=== PATIENT | female | born 1975 | race Caucasian/White ===

== ENCOUNTER 2018-12-31 18:47 | Emergency (ER) | payer OTHER ==
[~2018-12-31] VITALS: Ht 167.6 cm; Wt 78.9 kg
--- NOTE | 2018-12-31 19:01 | ED.ADGEN ---
Past History Past Medical History: Bronchitis Adult General Chief Complaint Chief Complaint ".. I ve been sick since .. cough, fever like feeling, weak.., achy.. just not right.. but today in much worse... seemed like I could not catch my breath.. 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 Patient is exposed to multiple children in daycare that are frequently ill with upper respiratory infection. No recent travel. No history immunosuppression. Patient normally follows with . Patient reports symptoms are worse today. Review of Systems Review of Systems Constitutional: History of fever or chills [] Eyes: Denies change in visual acuity, redness, or eye pain [] HENT: History of nasal congestion and sore throat [] Respiratory: History of cough and wheezing Cardiovascular: No additional information not addressed in HPI [] GI: Denies abdominal pain, nausea, vomiting, bloody stools or diarrhea [] : Denies dysuria or hematuria [] Musculoskeletal: Denies back pain or joint pain [] Integument: Denies rash or skin lesions [] Neurologic: Denies headache, focal weakness or sensory changes [] Endocrine: Denies polyuria or polydipsia [] All other systems were reviewed and found to be within normal limits, except as documented in this note. Family History Family History Noncontributory Current Medications Current Medications Current Medications Medications (Trade) Dose Ordered Sig/Elen Start Time Stop Time Status Last Admin Dose Admin Albuterol Sulfate (Ventolin Hfa Inhaler) 2 puff 1X ONCE 12/31/18 19:30 12/31/18 19:31 DC 12/31/18 19:30 2 PUFF Aspirin (Children'S Aspirin) 324 mg 1X ONCE 12/31/18 19:30 12/31/18 19:31 DC 12/31/18 19:30 324 MG Lactated Ringer's 1,000 ml @ 1,000 mls/hr Q1H 12/31/18 19:03 12/31/18 20:02 DC 12/31/18 19:03 1,000 MLS/HR Prednisone (Prednisone) 50 mg 1X ONCE 12/31/18 19:30 12/31/18 19:31 DC 12/31/18 19:30 50 MG Allergies Allergies Allergies Coded Allergies Type Severity Reaction Last Updated Verified Penicillins Allergy Unknown 12/31/18 Yes Physical Exam Physical Exam Constitutional: Moderate acute distress, non-toxic appearance. [] HENT: Normocephalic, atraumatic, bilateral external ears normal, oropharynx moist, injected pharynx, no oral exudates, nose injected turbinates and clear rhinorrhea. Eyes: PERRLA, EOMI, conjunctiva normal, no discharge. [] Neck: Normal range of motion, no tenderness, supple, no stridor. [] Cardiovascular:Heart rate regular rhythm, no murmur [] Lungs & Thorax: Bilateral breath sounds equal apex with scattered wheezes. On Auscultation [] Abdomen: Bowel sounds normal, soft, no tenderness, no masses, no pulsatile masses. [] Skin: Warm, dry, no erythema, no rash. [] Back: No tenderness, no CVA tenderness. [] Extremities: No tenderness, no cyanosis, no clubbing, ROM intact, no edema. [] Neurologic: Alert and oriented X 3, normal motor function, normal sensory function, no focal deficits noted. [] Psychologic: Affect normal, judgement normal, mood normal. [] Current Patient Data Vital Signs Vital Signs Date Time Temp Pulse Resp B/P (MAP) Pulse Ox O2 Delivery O2 Flow Rate FiO2 12/31/18 21:22 76 18 143/65 (91) 98 Room Air 12/31/18 19:15 98.3 Lab Results Laboratory Tests Test 12/31/18 19:37 12/31/18 20:17 White Blood Count 11.9 x10^3/uL (4.0-11.0) H Red Blood Count 4.51 x10^6/uL (3.50-5.40) Hemoglobin 13.3 g/dL (12.0-15.5) Hematocrit 41.0 % (36.0-47.0) Mean Corpuscular Volume 91 fL (79-100) Mean Corpuscular Hemoglobin 30 pg (25-35) Mean Corpuscular Hemoglobin Concent 33 g/dL (31-37) Red Cell Distribution Width 13.9 % (11.5-14.5) Platelet Count 294 x10^3/uL (140-400) Neutrophils (%) (Auto) 58 % (31-73) Lymphocytes (%) (Auto) 29 % (24-48) Monocytes (%) (Auto) 9 % (0-9) Eosinophils (%) (Auto) 3 % (0-3) Basophils (%) (Auto) 1 % (0-3) Neutrophils # (Auto) 6.9 x10^3uL (1.8-7.7) Lymphocytes # (Auto) 3.5 x10^3/uL (1.0-4.8) Monocytes # (Auto) 1.1 x10^3/uL (0.0-1.1) Eosinophils # (Auto) 0.3 x10^3/uL (0.0-0.7) Basophils # (Auto) 0.1 x10^3/uL (0.0-0.2) Prothrombin Time 10.1 SEC (9.4-11.4) Prothrombin Time INR 1.0 (0.9-1.1) Activated Partial Thromboplast Time 26 SEC (23-33) D-Dimer (Anjali) 0.41 mg/L (0.00-0.50) Sodium Level 141 mmol/L (136-145) Potassium Level 3.7 mmol/L (3.5-5.1) Chloride Level 105 mmol/L (98-107) Carbon Dioxide Level 27 mmol/L (21-32) Anion Gap 9 (6-14) Blood Urea Nitrogen 9 mg/dL (7-20) Creatinine 0.7 mg/dL (0.6-1.0) Estimated GFR (Cockcroft-Gault) 91.3 Glucose Level 91 mg/dL (70-99) Calcium Level 8.4 mg/dL (8.5-10.1) L Magnesium Level 2.0 mg/dL (1.8-2.4) Total Bilirubin 0.1 mg/dL (0.2-1.0) L Direct Bilirubin 0.1 mg/dL (0.0-0.2) Aspartate Amino Transferase (AST) 19 U/L (15-37) Alanine Aminotransferase (ALT) 35 U/L (14-59) Alkaline Phosphatase 99 U/L (46-116) Creatine Kinase 96 U/L (26-192) Troponin I Quantitative < 0.017 ng/mL (0-0.055) PW-Qpu-B-Type Natriuretic Peptide 40 pg/mL (0-124) Total Protein 7.7 g/dL (6.4-8.2) Albumin 3.6 g/dL (3.4-5.0) Lipase 82 U/L (73-393) Influenza Type A (Rapid) Negative (NEGATIVE) Influenza Type B (Rapid) Negative (NEGATIVE) Group A Streptococcus Rapid Negative (NEGATIVE) Urine Collection Type Unknown Urine Color Straw Urine Clarity Clear Urine pH 7.0 Urine Specific [place] 1.010 Urine Protein Neg (NEG-TRACE) Urine Glucose (UA) Neg mg/dL (NEG) Urine Ketones (Stick) Neg mg/dL (NEG) Urine Blood Small (NEG) Urine Nitrite Neg (NEG) Urine Bilirubin Neg (NEG) Urine Urobilinogen Dipstick 0.2 mg/dL (0.2 mg/dL) Urine Leukocyte Esterase Neg (NEG) Urine RBC Rare /HPF (0-2) Urine WBC Occ /HPF (0-4) Urine Squamous Epithelial Cells Occ /LPF Urine Bacteria 0 /HPF (0-FEW) Urine Opiates Screen Neg (NEG) Urine Methadone Screen Neg (NEG) Urine Barbiturates Neg (NEG) Urine Phencyclidine Screen Neg (NEG) Urine Amphetamine/Methamphetamine Neg (NEG) Urine Benzodiazepines Screen Neg (NEG) Urine Cocaine Screen Neg (NEG) Urine Cannabinoids Screen Neg (NEG) Urine Ethyl Alcohol Neg (NEG) EKG EKG My interpretation EKG shows a sinus rhythm at 70 bpm. No findings acute STEMI of contralateral changes.[] Radiology/Procedures Radiology/Procedures [ IMAGING REPORT Signed PATIENT: ALEXANDRIA WALL ACCOUNT: [id number] : 1975 LOCATION: ER AGE: 43 SEX: F EXAM STATUS: REG ER ORD. PHYSICIAN: OZZIE ROTH MD REASON: cp PROCEDURE: CHEST PA & LATERAL Chest, PA and Lateral: Technique: PA and lateral views of the chest were obtained. History: Chest pain. Comparison: None. Findings: The heart and pulmonary vasculature appear within normal limits. The lungs are clear. The pleural margins are clear. Impression: No acute chest process is seen. Electronically signed by: Radames Jimenez MD (12/31/2018 7:51 PM) [facility] DICTATED AND SIGNED BY: RADAMES JIMENEZ MD DATE: 12/31/181950 CC: TERESA JACOB DO; OZZIE ROTH MD ~ ][place] [address] IMAGING REPORT Signed PATIENT: ALEXANDRIA WALL ACCOUNT: [id number] : 1975 LOCATION: ER AGE: 43 SEX: F EXAM STATUS: REG ER ORD. PHYSICIAN: OZZIE ROTH MD REASON: cp PROCEDURE: CHEST PA & LATERAL Chest, PA and Lateral: Technique: PA and lateral views of the chest were obtained. History: Chest pain. Comparison: None. Findings: The heart and pulmonary vasculature appear within normal limits. The lungs are clear. The pleural margins are clear. Impression: No acute chest process is seen. Electronically signed by: Radames Jimenez MD (12/31/2018 7:51 PM) [facility] DICTATED AND SIGNED BY: RADAMES JIMENEZ MD DATE: 12/31/181950 CC: TERESA JACOB DO; OZZIE ROTH MD ~ Course & Med Decision Making Course & Med Decision Making Pertinent Labs and Imaging studies reviewed. (See chart for details) Awaiting coags. 2100- problems with lab runs. Patient to push fluids get adequate rest. Take Tylenol and ibuprofen for discomfort. Take prednisone 50 mg a day. Use MDI 2 puffs 4 times a day. Follow- up primary care. Return of any concerns. [] Final Impression Final Impression 1. Viral Syndrome 2. Bronchitis 3. Mild leukocytosis 11.9 Dragon Disclaimer Dragon Disclaimer This electronic medical record was generated, in whole or in part, using a voice recognition dictation system. Dragon Disclaimer This chart was dictated in whole or in part using Voice Recognition software in a busy, high-work load, and often noisy Emergency Department environment. It may contain unintended and wholly unrecognized errors or omissions. OZZIE ROTH MD Dec 31, 2018 19:01
[2018-12-31] MEDS ORDERED: IV RINGERS SOLUTION,LACTATED 1,000 ML IV SCH (19:03)
[2018-12-31] MEDS ORDERED: predniSONE 10 MG TABLET PO ONE (19:30)
[2018-12-31] MEDS ORDERED: ALBUTEROL SULFATE 8GM INHALER. INH ONE (19:30)
[2018-12-31] MEDS ORDERED: ASPIRIN 81 MG TAB.CHEW PO ONE (19:30)
[2018-12-31 19:53] LABS: BASO # 0.1 x10^3/uL (0.0-0.2); BASO % 1 % (0-3); EOS # 0.3 x10^3/uL (0.0-0.7); EOS % 3 % (0-3); HEMOGLOBIN 13.3 g/dL (12.0-15.5); LYMPH # 3.5 x10^3/uL (1.0-4.8); LYMPH % 29 % (24-48); MEAN CORPUSCULAR HEMOGLOBIN 30 pg (25-35); MEAN CORPUSCULAR HGB CONC 33 g/dL (31-37); MEAN CORPUSCULAR VOLUME 91 fL (79-100); MONO # 1.1 x10^3/uL (0.0-1.1); MONO % 9 % (0-9); NEUT # 6.9 x10^3uL (1.8-7.7); NEUT % 58 % (31-73); PLATELET COUNT 294 x10^3/uL (140-400); RED BLOOD COUNT 4.51 x10^6/uL (3.50-5.40); RED CELL DISTRIBUTION WIDTH 13.9 % (11.5-14.5); WHITE BLOOD COUNT 11.9 x10^3/uL (4.0-11.0)
--- NOTE | 2018-12-31 19:54 | RAD ---
Chest, PA and Lateral: Technique: PA and lateral views of the chest were obtained. History: Chest pain. Comparison: None. Findings: The heart and pulmonary vasculature appear within normal limits. The lungs are clear. The pleural margins are clear. Impression: No acute chest process is seen. Electronically signed by: Radames Jimenez MD (12/31/2018 7:51 PM) [facility]
[2018-12-31 20:15] LABS: INFLUENZA A PATIENT NEGATIVE (NEGATIVE); INFLUENZA B PATIENT NEGATIVE (NEGATIVE)
[2018-12-31 20:20] LABS: ALBUMIN 3.6 g/dL (3.4-5.0); CALCIUM 8.4 mg/dL (8.5-10.1); CREATININE 0.7 mg/dL (0.6-1.0); DIRECT BILIRUBIN 0.1 mg/dL (0.0-0.2); GFR 91.3; POTASSIUM 3.7 mmol/L (3.5-5.1); TOTAL BILIRUBIN 0.1 mg/dL (0.2-1.0); TOTAL PROTEIN 7.7 g/dL (6.4-8.2)
[2018-12-31 20:54] LABS: BARBITURATES NEG (NEG); BENZODIAZEPINES NEG (NEG); CANNABINOIDS NEG (NEG); COCAINE NEG (NEG); METHADONE NEG (NEG); OPIATES NEG (NEG); PHENCYCLIDINE NEG (NEG)
[2018-12-31 20:56] LABS: AMPHETAMINE/METHAMPHETAMINE NEG (NEG)
[2018-12-31] MEDS ORDERED: PRED50TA PO (21:07)
[2018-12-31] MEDS ORDERED: HYDR-1179 PO (21:07)
[2018-12-31] MEDS ORDERED: ONDA8TAB9 PO (21:07)
[2018-12-31 21:11] LABS: BACTERIA,URINE 0 /HPF (0-FEW); BILIRUBIN,URINE NEG (NEG); CLARITY,URINE CLEAR; COLOR,URINE STRAW; GLUCOSE,URINE NEG (NEG); NITRITE,URINE NEG (NEG); RBC,URINE RARE /HPF (0-2); SQUAMOUS EPITHELIAL CELL,UR OCC /LPF; UROBILINOGEN,URINE 0.2 mg/dL (0.2 mg/dL); WBC,URINE OCC /HPF (0-4)
[2018-12-31 21:22] VITALS: BP 143/65
--- NOTE | 2019-01-01 02:20 | EKG ---
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
== END 2018-12-31 21:50 | disposition home or self-care (01) ==
LOC: ER 18:47
DX: J40 Bronchitis, not specified as acute or chronic (principal); B34.9 Viral infection, unspecified; D72.829 Elevated white blood cell count, unspecified; Z88.0 Allergy status to penicillin
CPT/HCPCS: 36415; 71046; 80048; 80076; 80307; 81001; 82550; 83690; 83735; 83880; 84443; 84484; 85025; 85379; 85610; 85730; 87070; 87804; 87880; 93005; 94640; 99285; J7120; J7512; J7613; 94664